=== PATIENT | male | born 2005 | race Caucasian/White ===

== ENCOUNTER 2023-11-01 14:27 | Emergency (ER) | payer OTHER ==
[~2023-11-01] VITALS: Ht 170.2 cm; Wt 105.2 kg
[2023-11-01 15:13] VITALS: BP 133/92; PULSE 105; RESP 18; TEMP 97.9; O2SAT 98
[2023-11-01] MEDS ORDERED: NAPR-1704 PO (17:01)
== END 2023-11-01 17:07 | disposition home or self-care (01) ==
LOC: MED 14:27
DX: M25.552 Pain in left hip (principal); Z79.899 Other long term (current) drug therapy
CPT/HCPCS: 73502; 99283